=== PATIENT | female | born 1945 | race Hispanic/Latino ===

== ENCOUNTER 2017-09-23 13:59 | Emergency (ER) | payer OTHER ==
--- NOTE | 2017-09-23 15:45 | RAD REPORT ---
EXAM DESCRIPTION: RAD - Chest Pa And Lat (2 Views) - 09/23/2017 3:01 pm CLINICAL HISTORY: Chest pain COMPARISON: August 06, 2016 TECHNIQUE: PA and lateral views of the chest were obtained. FINDINGS: The lungs are clear. Interstitial pattern is similar to the comparison. No failure or vol ume overload. Heart size is normal and central vasculature is within normal limits. No pleural effus ion or pneumothorax seen. No acute bony finding noted. No aortic abnormality. IMPRESSION: No acute cardiopulmonary process. Chest is not significantly different from the compari son.
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
[2017-09-23 16:22] VITALS: BP 147/83; TEMP 97.5; O2SAT 98
--- NOTE | 2017-09-24 06:57 | EKG ---
Test Date: 2017-09-23 Test Time: 14:24:40 Bar Welder: ALANIS MEASUREMENT RESULTS: Intervals: Rate: 65 FL: 128 QRSD: 70 QT: 378 QTc: 393 [place]ley: P: 8 FL: 128 QRS: 27 T: 28 INTERPRETIVE STATEMENTS: Normal sinus rhythm Low voltage QRS Nonspecific T wave abnormality Abnormal ECG Compared to ECG 08/06/2016 12:36:09 T-wave abnormality now present Electronically Signed On 09-24-17 06:55:25 CDT by Martinez Denton
== END 2017-09-23 16:18 | disposition home or self-care (01) ==
LOC: ER 13:59
DX: R07.1 Chest pain on breathing (principal); E11.9 Type 2 diabetes mellitus without complications; I10 Essential (primary) hypertension
CPT/HCPCS: 71046; 93005; 99282

== ENCOUNTER 2020-02-02 14:02 | Emergency (ER) | payer OTHER ==
--- NOTE | 2020-02-02 14:35 | EDPHYS ---
Physician Documentation [facility] Name: Mally Quintana Age: 74 yrs Sex: Female : 1945 Arrival Date: 02/02/2020 Time: 14:05 Bed 19 Private MD: Bernard Campbell F ED Physician Usman Neves HPI: 02/01 14:38 This 74 yrs old Female presents to ER via Ambulatory with complaints of Insect snw Bite. 14:38 The patient presents with cellulitis of the forehead. Description: erythematous, snw swollen, warm. Onset: The symptoms/episode began/occurred gradually, 3 day(s) ago, and became persistent. Associated signs and symptoms: Pertinent positives: erythema, swelling. Severity of symptoms: At their worst the symptoms were moderate. The patient has not experienced similar symptoms in the past. The patient has not recently seen a physician, the patient's primary care provider is Dr. Campbell. Historical: - Allergies: 14:18 No Known Allergies; bp - Home Meds: 14:18 lisinopril 10 mg Oral tab 1 tab once daily [Active]; metformin 1,000 mg Oral tr24 1 tab bp twice a day [Active]; Novolin 70/30 [place] Sub-Q [Active]; - PMHx: 14:18 Diabetes - NIDDM; Hypertension; bp - Immunization history:: Adult Immunizations up to date. - Social history:: Smoking status: Patient denies any tobacco usage or history of. ROS: 14:39 Constitutional: Negative for fever, chills, and weight loss, Eyes: Negative for injury, snw pain, redness, and discharge, ENT: Negative for injury, pain, and discharge, Neck: Negative for injury, pain, and swelling, Cardiovascular: Negative for chest pain, palpitations, and edema, Respiratory: Negative for shortness of breath, cough, wheezing, and pleuritic chest pain, Abdomen/GI: Negative for abdominal pain, nausea, vomiting, diarrhea, and constipation, Back: Negative for injury and pain, : Negative for injury, bleeding, discharge, and swelling, MS/Extremity: Negative for injury and deformity, Neuro: Negative for headache, weakness, numbness, tingling, and seizure, Psych: Negative for depression, anxiety, suicide ideation, homicidal ideation, and hallucinations. 14:39 Skin: Positive for erythema, swelling, of the forehead. Exam: 14:40 Constitutional: This is a well developed, well nourished patient who is awake, alert, snw and in no acute distress. Head/Face: Normocephalic, atraumatic. Erythema, mild edema to forehead up to hairline Eyes: Pupils equal round and reactive to light, extra-ocular motions intact. Lids and lashes normal. Conjunctiva and sclera are non-icteric and not injected. Cornea within normal limits. Periorbital areas with no swelling, redness, or edema. ENT: Nares patent. No nasal discharge, no septal abnormalities noted. Tympanic membranes are normal and external auditory canals are clear. Oropharynx with no redness, swelling, or masses, exudates, or evidence of obstruction, uvula midline. Mucous membranes moist. Neck: Trachea midline, no thyromegaly or masses palpated, and no cervical lymphadenopathy. Supple, full range of motion without nuchal rigidity, or vertebral point tenderness. No Meningismus. Chest/axilla: Normal chest wall appearance and motion. Nontender with no deformity. No lesions are appreciated. Cardiovascular: Regular rate and rhythm with a normal S1 and S2. No gallops, murmurs, or rubs. Normal PMI, no JVD. No pulse deficits. Respiratory: Lungs have equal breath sounds bilaterally, clear to auscultation and percussion. No rales, rhonchi or wheezes noted. No increased work of breathing, no retractions or nasal flaring. Abdomen/GI: Soft, non-tender, with normal bowel sounds. No distension or tympany. No guarding or rebound. No evidence of tenderness throughout. Back: No spinal tenderness. No costovertebral tenderness. Full range of motion. Skin: Warm, dry with normal turgor. Normal color with no rashes, no lesions, and no evidence of cellulitis. MS/ Extremity: Pulses equal, no cyanosis. Neurovascular intact. Full, normal range of motion. Neuro: Awake and alert, GCS 15, oriented to person, place, time, and situation. Cranial nerves II-XII grossly intact. Motor strength 5/5 in all extremities. Sensory grossly intact. Cerebellar exam normal. Normal gait. Psych: Awake, alert, with orientation to person, place and time. Behavior, mood, and affect are within normal limits. Vital Signs: 14:15 BP 146 / 90; Pulse 79; Resp 16; Temp 97.9; Pulse Ox 100% ; Weight 107.05 kg; Height 5 bp ft. 4 in. (162.56 cm); 14:53 BP 131 / 54; Pulse 70; Resp 16; Pulse Ox 99% ; bp 14:15 Body Mass Index 40.51 (107.05 kg, 162.56 cm) bp MDM: 14:21 Patient medically screened. snw 14:37 Data reviewed: vital signs, nurses notes. Counseling: I had a detailed discussion with snw the patient and/or guardian regarding: the historical points, exam findings, and any diagnostic results supporting the discharge/admit diagnosis, the presence of at least one elevated blood pressure reading (>120/80) during this emergency department visit, the need for outpatient follow up, to return to the emergency department if symptoms worsen or persist or if there are any questions or concerns that arise at home. Special discussion: I discussed in detail with the patient the higher chance of wound infection based on his presenting history. Based on the history and exam findings, there is no indication for further emergent testing or inpatient evaluation. I discussed with the patient/guardian the need to see the primary care provider for further evaluation of the symptoms. 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 Exp: bp 07/05/2022. Lot #: [id number]. } Route: IM; Site: right deltoid; 14:53 Follow up: Response: No adverse reaction bp Disposition: 14:56 Co-signature as Attending Physician, Usman Neves MD. rn Disposition: 02/02/20 14:34 Discharged to Home. Impression: Cellulitis of face. - Condition is Stable. - Discharge Instructions: Cellulitis, Adult, VIS, Tetanus, Diphtheria (Td) - CDC. - Prescriptions for Prednisone 20 mg Oral Tablet - take 1 tablet by ORAL route once daily for 5 days; 5 tablet. Valtrex 1 g Oral Tablet - take 1 tablet by ORAL route every 8 hours for 7 days; 21 tablet. Doxycycline Hyclate 100 mg Oral Tablet - take 1 tablet by ORAL route every 12 hours; 20 tablet. - Medication Reconciliation Form, Thank You Letter, Antibiotic Education, Prescription Opioid Use form. - Follow up: Bernard Campbell MD; When: 2 - 3 days; Reason: Recheck today's complaints, Continuance of care, Re-evaluation by your physician. Follow up: Emergency Department; When: As needed; Reason: Worsening of condition. Signatures: Ani Escamilla, FORENSICS ANALYST-C FORENSICS ANALYST-[place]nw Usman Neves MD MD rn Peltier, Brian, RN RN bp Corrections: (The following items were deleted from the chart) 14:55 14:34 02/02/2020 14:34 Discharged to Home. Impression: Cellulitis of face. Condition is bp Stable. Forms are Medication Reconciliation Form, Thank You Letter, Antibiotic Education, Prescription Opioid Use. Follow up: Bernard Campbell; When: 2 - 3 days; Reason: Recheck today's complaints, Continuance of care, Re-evaluation by your physician. Follow up: Emergency Department; When: As needed; Reason: Worsening of condition. snw
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
[2020-02-02] MEDS ORDERED: ACYCLOVIR 400 MG TABLET ONE (14:58)
[2020-02-02] MEDS ORDERED: dexAMETHasone 4 MG TAB ONE (14:59)
[2020-02-02] MEDS ORDERED: TETANUS & DIPHTHERIA TOX,ADULT 0.5 ML VIAL ONE (14:59)
[2020-02-02] MEDS ORDERED: DOXYCYCLINE 100 MG CAP PO ONE (14:59)
[2020-02-02 15:02] VITALS: BP 131/54; TEMP 97.9; O2SAT 99
--- OUTSIDE RECORDS SUMMARY | 2020-02-07 20:46 | XMS REPORT | Summary of Care ---
:1945 Author Organization [facility] Address [address] [place] [address] Care Team Providers Name Role Phone AdrianBernard hernandez Primary Care Provider Reason for Visit Reason Comments Assessment Encounter Details Date Type Department Care Team Description 11/20/2019 Telephone [facility] Endocrinology- Pradip Perla MD Assessment [address] [address] [address] [place] [address] [phone] Allergies No Known Allergiesdocumented as of this encounter (statuses as of 11/22/2019) Medications Medication Sig Dispensed Refills Start Date End Date Status metFORMIN 1,000 mg Take 1,000 mg by 0 07/16/2019 Active tablet mouth 2 (two) times daily. lisinopril 10 mg 10 mg daily. 0 10/10/2019 Active tablet ALOE VERA ORAL Take 400 mg base 0 Active by mouth. NON-FORMULARY Take 497.5 mg base 0 Active MEDICATIONIndications: by mouth daily. StemCell Maxum Indications: StemCell Maxum Insulin NPH-Regular inject 12-15 Units 9 mL 3 10/11/2019 Active Human Rec 100 unit/mL under the skin 2 (70-30) (two) times daily injectionIndications: before breakfast Uncontrolled type 2 and dinner. diabetes mellitus with hyperglycemia Insulin [place], Use as directed 200 Each 1 10/11/2019 Active Disposable, (PEN BID AC E11.65 NEEDLE) 32 gauge x 5/32" NdleIndications: Uncontrolled type 2 diabetes mellitus with hyperglycemia documented as of this encounter (statuses as of 11/22/2019) Active Problems Not on filedocumented as of this encounter (statuses as of 11/22/2019) Social History Tobacco Use Types Packs/Day Years Used Date Never Smoker Smokeless Tobacco: Never Used Alcohol Use Drinks/Week oz/Week Comments Never Alcohol Habits Answer Date Recorded How often do you have a drink containing alcohol? Never 10/11/2019 How many drinks containing alcohol do you have on a typical Not asked day when you are drinking? How often do you have six or more drinks on one occasion? No t asked Sex Assigned at Date Recorded Not on file Job Start Date Occupation Industry Not on file Not on file Not on file Travel History Travel Start Travel End No recent travel history available. documented as of this encounter Last Filed Vital Signs Not on filedocumented in this encounter Plan of Treatment Date Type Specialty Care Team Description 01/09/2020 Office Visit Endocrinology Diabetes & Charlie Perla MD Metabolism [address] [place], [place] [id number] Health Maintenance Due Date Last Done Comments EYE EXAM 11/14/1953 DTaP,Tdap,and Td Vaccines (1 - Tdap) 11/14/1954 Depression Screening 1955 Zoster Recombinant Vaccine (SHINGRIX) (1 11/14/1993 of 2) Medicare Wellness Visit 11/14/2008 Osteoporosis Screening 11/14/2008 PNEUMOCOCCAL VACCINES 65+ (1 of 2 - PCV13) 11/14/2008 INFLUENZA VACCINE (#1) 2020 HgA1C 04/11/2020 10/11/2019 CREATININE (SERUM) 10/10/2020 10/11/2019 FOOT EXAM 10/10/2020 10/11/2019, 10/11/2019 LDL-C 10/10/2020 10/11/2019 URINE MICROALBUMIN 10/10/2020 10/11/2019 documented as of this encounter Results Not on filedocumented in this encounter Insurance Payer Benefit Plan / Subscriber ID Effective Dates Phone Addre ss Type Group [employer] [id number] 2019-Prese Medicare Adv PLUS STAR PLUS nt HMO documented as of this encounter
--- OUTSIDE RECORDS SUMMARY | 2020-02-07 20:46 | XMS REPORT | Continuity of Care Document ---
:1945 Author Organization [facility] t Address [address] [place] [address] Dr. Marroquin. [address] [place] [address] Care Team Providers Name Role Phone Pan DRISCOLL Attending Clinician Doctor Unassigned, Name Attending Clinician Unavailable Problems This patient has no known problems. Allergies, Adverse Reactions, Alerts This patient has no known allergies or adverse reactions. Medications This patient has no known medications. Procedures This patient has no known procedures. Encounters Start End Encounter Admission Attending Care Care Encounter Source Date/Time Date/Time Type Type Clinicians Facility Department ID 2020-01-09 2020-01-09 Office Pan [facility] [id number] 15:00:12 16:08:57 Visit Pradip Beyer [id number] [place] [id number] [place] [phone] [address] 2020-01-09 2020-01-09 Orders Doctor RIVAS [id number] 00:00:00 00:00:00 Only UnassignedYAQUELIN [id number] [place] [facility] [id number] Results This patient has no known results.
--- OUTSIDE RECORDS SUMMARY | 2020-02-07 20:47 | XMS REPORT | Summary of Care ---
:1945 Author Organization [facility] Address [address] [place] [address] Care Team Providers Name Role Phone Bernard Campebll Primary Care Provider Reason for Visit Reason Comments Follow-up Diabetes Mellitus II LAB POCT A1c done in office toda y Encounter Details Date Type Department Care Team Description 01/09/2020 Office Visit [facility] Pradip Perla MD Uncontrolled type 2 diabetes mellitus wi th hyperglycemia (Primary Dx); Endocrinology- [address] [facility] Dyslipid emia; [facility] Essential hypertension [address] [place] [address], [address] [address] [place], [place] [phone] Allergies No Known Allergiesdocumented as of this encounter (statuses as of 01/09/2020) Medications Medication Sig Dispensed Refills Start Date End Date Status metFORMIN 1,000 mg Take 1,000 mg 0 07/16/2019 Active tablet by mouth 2 (two) times daily. lisinopril 10 mg 10 mg daily. 0 10/10/2019 Active tablet ALOE VERA ORAL Take 400 mg 0 Act sundar base by mouth. NON-FORMULARY Take 497.5 mg 0 Ac tive MEDICATIONIndicati base by mouth ons: StemCell daily. Maxum Indications: StemCell Maxum Insulin [place], Use as 200 Each 1 10/11/2019 Ac tive Disposable, (PEN directed BID NEEDLE) 32 gauge x AC E11.65 " NdleIndications: Uncontrolled type 2 diabetes mellitus with hyperglycemia Insulin 18-20 units 15 mL 3 01/09/2020 Active NPH-Regular Human with breakfast Rec 100 unit/mL and 20-22 (70-30) units with injectionIndicatio dinner. ns: Uncontrolled type 2 diabetes mellitus with hyperglycemia Insulin inject 12-15 9 mL 3 10/11/2019 Discon tinued NPH-Regular Human Units under 0 (Reorder) Rec 100 unit/mL the skin 2 (70-30) (two) times injectionIndicatio daily before ns: Uncontrolled breakfast and type 2 diabetes dinner. mellitus with hyperglycemia documented as of this encounter (statuses as of 01/09/2020) Active Problems Not on filedocumented as of this encounter (statuses as of 01/09/2020) Social History Tobacco Use Types Packs/Day Years [...] Assigned at Date Recorded Not on file COVID-19 Exposure Response Date Recorded In the last month, have you been in contact with No / Unsure 01/09/2020 2:58 PM CDT someone who was confirmed or suspected to have Coronavirus / COVID-19? documented as of this encounter Last Filed Vital Signs Vital Sign Reading Time Taken Comments Blood Pressure 128/79 01/09/2020 3:30 PM CDT Pulse 68 01/09/2020 3:30 PM CDT Temperature - - Respiratory Rate - - Oxygen Saturation - - Inhaled Oxygen Concentration - - Weight 107 kg (236 lb) 01/09/2020 3:30 PM CDT Height 162.6 cm (5' 4") 01/09/2020 3:30 PM CDT Body Mass Index 40.51 01/09/2020 3:30 PM CDT documented in this encounter Patient Instructions Patient InstructionsPradip Perla MD - 01/09/2020 3:00 PM CDTIncrease NPH 70/30 insulin to 18 units with breakfast and 20 units with dinner. You can increase 2 units of each dose if your sugar remains >200 most time in 4 days. Continue this increase pattern until sugar <200 most time Continue metformin 1000mg twice a day documented in this encounter Progress Notes Pradip Perla MD - 01/09/2020 3:00 PM CDT CC follow up for type 2 DM HPI Patient is a 74 year old /White female who is here today for Diabetes Mellitus Type 2. Patient's diabetes is complicated by atherogenic diet, hyperlipidemia, hypertension , neuropathy: Peripheral and lower extremity, obesity and sedentary lifestyle. . DM was diagnosed at age 53 Year-old. Had gastric bypass in 2001 and DM resolved with 100lbs weight loss DM recurred in 2004 and has been on oral meds since. Had tried Tresiba 15 units daily for 1-2 weeks without improvement and unable to afford Tresiba/basaglar Patient was referred here in 10/2019 with A1C at 9.1. she was instructed t restart NPH 70/30 insulinfor lower cost of medication Patient usually checks blood glucoses 2 times a day with a [facility] meter. Patient has brought in the blood sugars to be reviewed today. Average blood sugar before breakfast 163-315, post meal 157-355. The patient is not having problems with hypoglycemia. Patient is compliant with medication regimen. Taking NPH 70/30 16 units BID and metformin 1000mg BID Patient is Better compliant with diet- cut down calabrese/pancake for breakfast and enchiladas for dinner . no regular exercise regimen but active DIABETIC HEALTH MAINTENANCE Last Ophthalmology visit was 09/2019, no DR Patient on ABBY/ARB therapy - Yes Patient on ASA therapy - No. Patient on Statin/Fibrate therapy - No. Patient instructed about daily feet exams, last sensation exam was 10/11/2019 . Patient has received Nutrition/Diet/Diabetes Education on 10/11/2019 HISTORY Past Medical History: Diagnosis Date Cataract Diabetes mellitus Hyperlipidemia Hypertension Obesity (BMI 30-39.9) Osteoporosis Past Surgical History: Procedure Laterality Date GASTRIC BYPASS,OBESE<100CM ROMEL-EN-Y 2004 Family History Problem Relation Age of Onset Diabetes Daughter Social History Socioeconomic History Marital status: Spouse name: Not on file Number of children: Not on file Years of education: Not on file Highest education level: Not on file Occupational History Not on file Social Needs Financial resource strain: Not on file Food insecurity Worry: Not on file Inability: Not on file Transportation needs Medical: Not on file Non-medical: Not on file Tobacco Use Smoking status: Never Smoker Smokeless tobacco: Never Used Substance and Sexual Activity Alcohol use: Never Frequency: Never Drug use: Never Sexual activity: Not Currently Lifestyle Physical activity Days per week: Not on file Minutes per session: Not on file Stress: Not on file Relationships Social connections Talks on phone: Not on file Gets together: Not on file Attends sabianism service: Not on file Active member of club or organization: Not on file Attends meetings of clubs or organizations: Not on file Relationship status: Not on file Intimate partner violence Fear of current or ex partner: Not on file Emotionally abused: Not on file Physically abused: Not on file Forced sexual activity: Not on file Other Topics Concern Not on file Social History Narrative Not on file REVIEW OF SYSTEMS Constitutional: denies weight change, + fatigue Eyes: denies blurry vision, denies diplopia and denies pain. Neck: denies pain, denies swollen glands Cardiovascular: denies chest pain , denies irregular pulse and denies palpitations. Respiratory: denies dyspnea on exertion and denies shortness of breath. Gastrointestinal: denies abdominal pain, denies constipation and denies diarrhea. Genitourinary: denies burning and denies dysuria. Musculoskeletal: denies back pain, denies muscle pain and denies weakness. Skin: denies dry skin and denies hair changes. Neuro: + numbness ,+ tingling and denies tremor. Psych: negative. Endocrine: denies goiter, denies hair loss, denies intolerance to cold, denies intolerance to heat, denies polydipsia, denies polyphagia and denies polyuria. PHYSICAL EXAM No results found for: POCGLU CREATININE-Q (mg/dL) Date Value 10/11/2019 0.65 CHOLESTEROL, TOTAL-Q (mg/dL) Date Value 10/11/2019 181 HDL CHOLESTEROL-Q (mg/dL) Date Value 10/11/2019 51 [id number]-N (mg/dL (calc)) Date Value 10/11/2019 111 (H) TRIGLYCERIDES-Q (mg/dL) Date Value 10/11/2019 91 No results found for: ALBUCREAT, UALBCREAT POCT HBA1C (%) Date Value 01/09/2020 8.0 (A) 10/11/2019 9.1 04/2019 A1c=9.4 BP 128/79 (BP Location: Left arm, Patient Position: Sitting, BP CUFF SIZE: Adult Large) | Pulse 68| Ht 5' 4" (1.626 m) | Wt 236 lb (107 kg) | BMI 40.51 kg/m General: alert, oriented times three, no apparent distress, appearing age appropriate. Skin: skin color and turgor are normal Head: normocephalic, no masses, lesions, tenderness or abnormalities. Eyes: anicteric sclera, pupils are equally round and reactive to light. Neck: +acanthosis nigricans Thyroid: normal size and consistency to palaption Lungs: good diaphragmatic excursion, lungs clear to auscultation bilaterally. Heart: regular rate and rhythm, no murmurs, gallops or rubs. Abdomen: abdomen soft, non-tender, normal active bowel sounds, + obese. Neuro: unremarkable without focal findings. Extremities/Musculoskeletal: no cyanosis, no edema ASSESSMENT/PLAN 1. Uncontrolled type 2 diabetes mellitus with hyperglycemia -A1C (target=6-7%): 9.4 (04/20)-->9.1(10/20)-->8.0(01/20) -glucose range: hyperglycemia thru the day. more hyperglycemia in morning fasting - without hypoglycemia -complication: neuropathy -medication limitation: Tresiba /basaglar costly -diet: high carb at time -exercise: limited by joint/leg pain Plan -reinterated to check glucose at least BID alternating fasting and 2 hours post meals -urged compliance with diet - POCT HEMOGLOBIN A1C TEST - Insulin NPH-Regular Human Rec 100 unit/mL (70-30) injection; 18-20 units with breakfast and 20-22 units with dinner. Dispense: 15 mL; Refill: 3 Patient Instructions Increase NPH 70/30 insulin to 18 units with breakfast and 20 units with dinner. You can increase 2 units of each dose if your sugar remains >200 most time in 4 days. Continue this increase pattern until sugar <200 most time Continue metformin 1000mg twice a day 2. Dyslipidemia Will consider statin in next visit 3. Essential hypertension BP in clinic was at target Plan Continue lisinopril for now. Refilled by PCP documented in this encounter Plan of Treatment Date Type Specialty Care Team Description 05/14/2020 Office Visit Endocrinology Diabetes & Charlie Perla MD Metabolism [address] [place], [place] [address] Health Maintenance Due Date Last Done Comments EYE EXAM 11/14/1955 DTaP,Tdap,and Td Vaccines (1 - Tdap) 11/14/1962 Zoster Recombinant Vaccine (SHINGRIX) (1 11/14/1993 of 2) Medicare Wellness Visit 11/14/2008 Osteoporosis Screening 11/14/2008 PNEUMOCOCCAL VACCINES 65+ (1 of 1 - 11/14/2008 PPSV23) INFLUENZA VACCINE (#1) 2020 HgA1C 04/11/2020 10/11/2019 CREATININE (SERUM) 10/10/2020 10/11/2019 FOOT EXAM 10/10/2020 10/11/2019, 10/11/2019 LDL-C 10/10/2020 10/11/2019 URINE MICROALBUMIN 10/10/2020 10/11/2019 Depression Screening 01/08/2021 01/09/2020 documented as of this encounter Procedures Procedure Name Priority Date/Time Associated Diagnosis Comme nts POCT HEMOGLOBIN A1C Routine 01/09/2020 Uncontrolled type 2 R esults for this TEST diabetes mellitus with proce dure are in the hyperglycemia results sectio n. documented in this encounter Results POCT HEMOGLOBIN A1C TEST (01/09/2020) Pathologist Sig nature POCT HBA1C 8.0 (A) 4 - 6 % Specimen Blood - CAPILLARY documented in this encounter Visit Diagnoses Diagnosis Uncontrolled type 2 diabetes mellitus wi th hyperglycemia - Primary Dyslipidemia Other and unspecified hyperlipidemia Essential hypertension Unspecified essential hypertension documented in this encounter Insurance Payer Benefit Plan / Subscriber ID Effective Dates Phone Addre ss Type Group [employer] [id number] 2019-Prese Medicare Adv PLUS STAR PLUS nt HMO documented as of this encounter
--- OUTSIDE RECORDS SUMMARY | 2020-02-07 20:47 | XMS REPORT | Summary of Care ---
:1945 Author Organization [facility] - Health Address [address] [place] [address] Care Team Providers Name Role Phone Bernard Campbell Primary Care Provider Encounter Details Date Type Department Care Team Description 01/09/2020 Orders Only [facility] Doctor Unassigned, No [address] [facility] [place] [address] [address] [place] [address] Allergies No Known Allergiesdocumented as of this encounter (statuses as of 01/19/2020) Medications Medication Sig Dispensed Refills Start Date [...] daily. StemCell Maxum Indications: StemCell Maxum Insulin [place], Use as directed 200 Each 1 10/11/2019 Active Disposable, (PEN BID AC E11.65 NEEDLE) 32 gauge x 5/32" NdleIndications: Uncontrolled type 2 diabetes mellitus with hyperglycemia Insulin NPH-Regular 18-20 units with 15 mL 3 01/09/2020 Active Human Rec 100 unit/mL breakfast and (70-30) 20-22 units with injectionIndications: dinner. Uncontrolled type 2 diabetes mellitus with hyperglycemia documented as of this encounter (statuses as of 01/19/2020) Active Problems Not on filedocumented as of this encounter (statuses as of 01/19/2020) Social History Tobacco Use Types Packs/Day Years [...] Visit Endocrinology Diabetes & Charlie Perla MD [address] [id number] Health Maintenance Due Date Last Done Comments EYE EXAM 11/14/1955 DTaP,Tdap,and Td Vaccines (1 - Tdap) 11/14/1962 Zoster Recombinant Vaccine (SHINGRIX) (1 11/14/1993 of 2) Medicare Wellness Visit 11/14/2008 Osteoporosis Screening 11/14/2008 PNEUMOCOCCAL VACCINES 65+ (1 of 1 - 11/14/2008 PPSV23) INFLUENZA VACCINE (#1) 2020 HgA1C 07/08/2020 01/09/2020, 10/11/2019 CREATININE (SERUM) 10/10/2020 10/11/2019 FOOT EXAM 10/10/2020 10/11/2019, 10/11/2019 LDL-C 10/10/2020 10/11/2019 URINE MICROALBUMIN 10/10/2020 10/11/2019 Depression Screening 01/08/2021 01/09/2020 documented as of this encounter Procedures Procedure Name Priority Date/Time Associated Diagnosis Comme nts PATIENT QUESTIONNAIRE Routine 01/09/2020 12:01 AM CDT documented in this encounter Results Not on filedocumented in this encounter Insurance Payer Benefit Plan / Subscriber ID Effective Dates Phone Addre ss Type Group [employer] [id number] 2019-Prese Medicare Adv PLUS STAR PLUS nt HMO documented as of this encounter
--- OUTSIDE RECORDS SUMMARY | 2020-02-07 20:47 | XMS REPORT | Summary of Care ---
:1945 Author Organization [facility] Address [address] [place] [address] Care Team Providers Name Role Phone Bernard Campbell Primary Care Provider Reason for Visit Reason Comments Refill Request Encounter Details Date Type Department Care Team Description 01/09/2020 Refill [facility] Endocrinology- Pradip [place] [address] [address] [place] [address] [phone] Allergies No Known Allergiesdocumented as of this [...] daily. StemCell Maxum Indications: StemCell Maxum Insulin [place], Use as directed 200 Each 1 10/11/2019 [...] Signs Not on filedocumented in this encounter Miscellaneous Notes Telephone Encounter - Fabiola Crook MA - 01/09/2020 4:15 PM CDT Prescription was sent to pharmacy today 01/09/2020 during patient office visit. Fabiola Crook MA 01/09/2020 4:16 PM Insulin NPH-Regular Human Rec 100 unit/mL (70-30) injection 15 mL 3 01/09/2020 -- Si-20 units with breakfast and 20-22 units with dinner. Sent to pharmacy as: insulin NPH-regular 70-30 U-100 insulin 100 unit/mL subcutaneous pen (HUMULIN 70/30 U-100 KWIKPEN) Class: eRX Order: [id number] E-Prescribing Status: Receipt confirmed by pharmacy (01/09/2020 4:01 PM CDT) documented in this encounter Plan of Treatment Date Type Specialty Care Team Description 05/14/2020 Office Visit Endocrinology Diabetes & Charlie Perla MD Metabolism [address] [place], [place] [phone] Health Maintenance Due Date Last Done Comments [...] 01/08/2021 01/09/2020 documented as of this encounter Results Not on filedocumented in this encounter Visit Diagnoses Diagnosis Uncontrolled type 2 diabetes mellitus wi th hyperglycemia documented in this encounter Insurance Payer Benefit Plan / Subscriber ID Effective Dates Phone Addre ss Type Group [employer] KRIST[employer]LIANNE DOUGLAS [employer] [id number] 2019-Pres Medicare Adv PLUS STAR PLUS nt HMO documented as of this encounter
--- OUTSIDE RECORDS SUMMARY | 2020-02-07 20:47 | XMS REPORT | Summary of Care ---
:1945 Author Organization [facility] Address [address] [place] [address] Care Team Providers Name Role Phone Bernard Campbell Primary Care Provider Reason for Visit Reason Comments Follow-up Diabetes Mellitus II LAB POCT A1c done in office toda y Encounter Details Date Type Department Care Team Description 01/09/2020 Office Visit [facility] Pradip Perla MD Uncontrolled type 2 diabetes mellitus wi th hyperglycemia (Primary Dx); Endocrinology- [address] [facility] Dyslipid emia; [facility] Essential hypertension [address] [place] [address], [address] [address] [place], [place] [phone] Allergies No Known Allergiesdocumented as of [...] StemCell daily. Maxum Indications: StemCell Maxum Insulin [place], Use as 200 Each 1 10/11/2019 Ac [...] file Gets together: Not on file Attends episcopal service: Not on file Active member of [...] HDL CHOLESTEROL-Q (mg/dL) Date Value 10/11/2019 51 [id number]-I (mg/dL (calc)) Date Value 10/11/2019 111 (H) [...] Diabetes & Charlie Perla MD Metabolism [address] [place], [place] [address] Health Maintenance Due Date Last Done Comments [...] ss Type Group [employer] [id number] 2019-Prese Medicare Adv PLUS STAR PLUS nt HMO documented as of this encounter
== END 2020-02-02 14:55 | disposition home or self-care (01) ==
LOC: ER 14:02
DX: L03.211 Cellulitis of face (principal); I10 Essential (primary) hypertension; E11.9 Type 2 diabetes mellitus without complications; Z23 Encounter for immunization; Z79.4 Long term (current) use of insulin
CPT/HCPCS: 90471; 90714; 99283; J8540